=== PATIENT | female | born 1955 | race Caucasian/White ===

== ENCOUNTER 2021-03-04 00:45 | Day surgery (SDC) | payer OTHER, SELFPAY ==
[2021-02-11 14:19] VITALS: BMI 26.6
[2021-03-04 06:26] VITALS: BP 134/91; PULSE 99; RESP 16; TEMP 36.7; O2SAT 99; BMI 26.7
[2021-03-04] MEDS: LACTATED RINGERS 1,000 ML 150 ML IV CONT (06:39)
--- NOTE | 2021-03-04 07:16 | P.PNAN_ITS ---
Anes - Initial Pre Proc Eval Procedure: Operation Date: 03/04/21 07:30 Proposed Procedures p Screening Colonoscopy - Nikita Diana MD Date/Time: 03/04/21 07:16 Surgeon: Nikita Diana MD Pre Op Diagnosis: neoplasm screening Patient Data Age: 65 Gender: F Height: 1.68 m Weight: 75.2 kg Last Vital Signs Temp 98.1 F 03/04/21 06:26 Pulse 99 03/04/21 06:26 Resp 16 03/04/21 06:26 BP 134/91 H 03/04/21 06:26 Pulse Ox 99 03/04/21 06:26 Allergies Allergy/AdvReac Type Severity Reaction Status Date / Time butorphanol Allergy Unknown Hallucinati Verified 03/04/21 06:25 ons BUTORPHANOL TARTRATE Allergy Unknown Unknown Uncoded 03/04/21 06:25 tape Allergy Unknown Unknown Uncoded 03/04/21 06:25 Home Medications Medication Instructions Recorded Confirmed Type sodium,potassium,mag sulfates 17.5 See Rx Instructions PO .COMPLEX 01/26/21 Rx gram-3.13 gram-1.6 gram oral soln #354 ml cetirizine [Zyrtec] 10 mg PO DAILY PRN 02/11/21 03/04/21 History fluticasone propion-salmeterol 1 inh INHALATION BID PRN 02/11/21 03/04/21 History [Advair Diskus] levalbuterol tartrate [Xopenex HFA] 1 puff INHALATION Q6H PRN 02/11/21 03/04/21 History meloxicam 15 mg PO DAILY PRN 02/11/21 03/04/21 History Patient hx anesthesia problems: none Family hx anesthesia problems: none PMFSH Past Medical History Medical History (Updated 03/04/21 @ 07:16 by Nishant Masters MD) Mild persistent asthma with exacerbation Nonrheumatic mitral (valve) insufficiency Family History Family History Father Cerebrovascular accident, Onset Age: 77 Family history of Parkinson's disease, Onset Age: 77 Mother Carcinoma of colon Other Diabetes mellitus Family history of cardiovascular disease Family history of elevated blood lipids Family history of malignant neoplasm of bone Hypertension Malignant neoplasm of prostate Social History Social History (Reviewed 06/16/20 @ 15:43 by Charity Dash [facility]) Smoking status: Never smoker Alcohol intake: never Living arrangements: with family Spiritual care concerns: No Anes - Eval Final PreProcedure Day of Procedure 03/04/21 07:16 Patient weight: overweight Heart: regular rate and rhythm Lungs: clear to auscultation Airway: Mallampati scale class II Neurological: alert and oriented Last oral intake: >/= 8 hours ASA classification: II Emergent: no Anesthetic plan: proceed Anesthesia type and monitoring: general GIVS and standard monitoring Informed Consent: The patient's anesthetic plan and its attendant risks and benefits were discussed with the patient/family/POA. Questions were solicited and answers provided to the satisfaction of the patient/family/POA.
--- NOTE | 2021-03-04 07:20 | P.CONGI_ITS ---
Assessment and Plan Assessment and plan (1) Family history of colon cancer in mother: Code(s): Z80.0 - Family history of malignant neoplasm of digestive organs Status: Acute Assessment and Plan: Patient's mother has had colon cancer. Screening colonoscopy is to be performed today. Suggest follow-up colonoscopy at 5 year intervals given the family history. GI Consult Note Consult date/time: 03/04/21 07:20 HPI: Elaine Mackay is a 65 year old female Presents for screening col onoscopy. Patient states that her current weight appetite bowel movements are normal. She denies abdominal pain. She has had no bleeding. She reports that her mother has had colon cancer. Patient's last colonoscopy appears to have been in 2009. She reports occasionally will have diarrhea after eating out at restaurants. Review of Systems Review of Systems: All systems reviewed & are unremarkable except as noted in HPI and below PMFSH Past Medical History Medical History (Updated 03/04/21 @ 07:22 by Nikita Diana MD) Mild persistent asthma with exacerbation Nonrheumatic mitral (valve) insufficiency Family History Family History Father Cerebrovascular accident, Onset Age: 77 Family history of Parkinson's disease, Onset Age: 77 Mother Carcinoma of colon Other Diabetes mellitus Family history of cardiovascular disease Family history of elevated blood lipids Family history of malignant neoplasm of bone Hypertension Malignant neoplasm of prostate Social History Social History Smoking status: Never smoker Alcohol intake: never Living arrangements: with family Spiritual care concerns: No Meds Home Medications and Allergies Home Medications Medication Instructions Recorded Confirmed Type sodium,potassium,mag sulfates 17.5 See Rx Instructions PO .COMPLEX 01/26/21 Rx gram-3.13 gram-1.6 gram oral soln #354 ml cetirizine [Zyrtec] 10 mg PO DAILY PRN 02/11/21 03/04/21 History fluticasone propion-salmeterol 1 inh INHALATION BID PRN 02/11/21 03/04/21 History [Advair Diskus] levalbuterol tartrate [Xopenex HFA] 1 puff INHALATION Q6H PRN 02/11/21 03/04/21 History meloxicam 15 mg PO DAILY PRN 02/11/21 03/04/21 History Allergies Allergy/AdvReac Type Severity Reaction Status Date / Time butorphanol Allergy Unknown Hallucinati Verified 03/04/21 06:25 ons BUTORPHANOL TARTRATE Allergy Unknown Unknown Uncoded 03/04/21 06:25 tape Allergy Unknown Unknown Uncoded 03/04/21 06:25 Vital Signs Vital Signs - 24 hr 03/04/21 06:26 Temperature 98.1 F Pulse Rate 99 Respiratory Rate 16 Blood Pressure 134/91 H Pulse Oximetry 99 Exam Narrative: Exam Narrative: Physical exam reveals patient be alert. Vital signs stable. HEENT exam is unremarkable. Patient is anicteric. Lungs are clear to auscultation and percussion. Heart is without murmur or extra sounds. Abdominal exam bowel sounds are present soft nontender with no organomegaly. Digital external rectal exam is normal.
[2021-03-04 07:45] VITALS: BP 88/53; PULSE 61; RESP 18; O2SAT 94
[2021-03-04 07:55] VITALS: BP 124/58; PULSE 60; RESP 27; O2SAT 99
[2021-03-04 08:05] VITALS: BP 120/64; PULSE 62; RESP 27; O2SAT 98
== END 2021-03-04 08:28 | disposition home or self-care (01) ==
PROVIDERS: PCP Family Medicine; Visit Provider Internal Medicine Gastroenterology
PROC: 0DJD8ZZ Inspection of Lower Intestinal Tract, Via Natural or Artificial Opening Endoscopic (ICD-10-PCS; CPT 45378; principal; 2021-03-04 07:30)
DX: Z12.11 Encounter for screening for malignant neoplasm of colon (principal); D12.5 Benign neoplasm of sigmoid colon; K63.5 Polyp of colon; K64.8 Other hemorrhoids; Z80.0 Family history of malignant neoplasm of digestive organs; J45.30 Mild persistent asthma, uncomplicated; I34.0 Nonrheumatic mitral (valve) insufficiency; Z79.51 Long term (current) use of inhaled steroids
CPT/HCPCS: 45385; 88305; J2704; J7120

== ENCOUNTER → 2021-07-11 17:44 | Outpatient (CLI) | payer OTHER, SELFPAY ==
--- NOTE | ~2021-07-11 | XR_ITS ---
EXAMINATION: XR knee LT min 4V DATE: 07/11/2021 18:09 INDICATION: Unspecified left knee pain TECHNIQUE: Weight bearing anteroposterior and Lees, sunrise, and flexed lateral views of the lef t knee were obtained COMPARISON: None. FINDINGS: Alignment is normal. No fracture. Mild to moderate joint space narrowing in the medial compartment o f the left knee. Marginal osteophytes in all 3 compartments. No small left knee joint effusion. Soft tissues are unremarkable. IMPRESSION: 1. Mild to moderate medial compartment predominant tricompartmental osteoarthritis with small left kn ee joint effusion. Reviewed, dictated and finalized at location A. MATIC ENGRAVER IMPRESSION: 1. Mild to moderate medial compartment predominant tricompartmental osteoarthri tis with small left knee joint effusion.
== END ==
DX: M17.12 Unilateral primary osteoarthritis, left knee (principal); M25.462 Effusion, left knee
CPT/HCPCS: 73564

== ENCOUNTER → 2022-01-20 17:08 | Outpatient (CLI) | payer OTHER, SELFPAY ==
--- NOTE | ~2022-01-20 | MR_ITS ---
EXAMINATION: MR knee LT wo con DATE: 01/20/2022 17:42 INDICATION: Left knee pain TECHNIQUE: Magnetic resonance imaging (MRI) of the left knee was performed without intravenous contra st. Sequences included coronal PD-weighted FSE, coronal PD-weighted FS FSE, sagittal T2-weighted FSE , sagittal PD-weighted FS FSE and axial PD weighted fat saturated FSE. COMPARISON: None. FINDINGS: Medial compartment: Complex tear of the medial meniscus with 11 x 9 x 9 mm heterotopic ossicle replacing a significant po rtion of meniscal tissue at the site of a near full-thickness tear of the lateral aspect of the poste rior horn. There is a longitudinal horizontal tear plane extending medially into the posterior horn i nto the posterior body of the medial meniscus. Large likely parameniscal cyst which extends for appro ximately 6.5 cm in length along the periphery of the body and posterior horn of the medial meniscus w hich measures up to 3.7 cm craniocaudally and up to 9 mm in maximal width from the meniscus. Differen tial for the multiloculated fluid collection would include less likely pes anserinus bursitis. There is extensive deep chondral ulceration along portions of the anterior to central weightbearing medial femoral condyle and anterior two thirds of the medial tibial plateau. Is remodeling with slight depre ssion and irregular cortical contour to the medial margin of the medial tibial plateau with subarticu lar edema-like marrow signal change. Additional mild scattered subarticular marrow-like signal change along the anterior to central weightbearing medial femoral condyle. Less severe partial thickness ca rtilage loss along the posterior weightbearing medial femoral condyle and posterior aspect of the med ial tibial plateau. Small marginal osteophytes are present. Lateral compartment: There is some fraying along the inner free edge of the body and posterior horn of the lateral meniscu s. Deep chondral fissuring involving greater than 50% the cartilage thickness but without degenerativ e subchondral changes at the posterior aspect of the lateral tibial plateau. Mild partial-thickness c artilage loss along the peripheral margin of the anterior weightbearing lateral femoral condyle. Smal l marginal osteophytes are present. Patellofemoral compartment: Partial-thickness chondral ulceration with chondral surface irregularity centered along the patellar apical ridge with tiny focus of underlying subarticular edema-like signal change and extending into t he adjacent portions of the medial and lateral patellar facets. There is linear low signal intensity along the surface of the cartilage at the medial margin of the medial patellar facet which on prior r adiographs appears to correspond to chondrocalcinosis. There is some chondral swelling at the trochle ar groove. Small marginal osteophytes along the patella and trochlea. Ligaments and tendons: Anterior and posterior cruciate ligaments are normal. The medial collateral ligament and fibular bienvenido ateral ligament complex are normal. There appears be some laxity in the medial collateral ligament re sulting from the cartilage loss in the medial compartment and the fissure and very mild genu varus. P atellar tendon is normal. Mild tendinopathy with tiny enthesopathic ossicle at the lateral aspect of the distal quadriceps tendon. The visualized medial and lateral hamstring tendons as well as the ilio tibial band are normal. Fluid: Physiologic amount of fluid in the joint space. No loose osteochondral bodies identified. Osseous/other: Normal marrow signal aside from previously noted small amounts of chondromalacia associated subarticu lar edema-like signal change. No fracture or abnormal marrow replacing process. IMPRESSION: 1. 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
== END ==
PROVIDERS: PCP Family Medicine; Visit Provider Physician Assistant
DX: S83.232A Complex tear of medial meniscus, current injury, left knee, initial encounter (principal); M17.12 Unilateral primary osteoarthritis, left knee
CPT/HCPCS: 73721

== ENCOUNTER → 2022-12-06 15:52 | Outpatient (CLI) | payer OTHER, SELFPAY ==
--- NOTE | ~2022-12-06 | US_ITS ---
US thyroid INDICATION: Thyroid goiter TECHNIQUE: Real-time sonographic images of the thyroid gland were obtained. COMPARISON: No prior studies for comparison. FINDINGS: The right thyroid lobe measures 4.2 x 1.5 x 1.4 cm. The left thyroid lobe measures 4 x 0.9 x 1.2 cm there are small cysts in the right thyroid lobe measuring 2 mm or less. There is a 3 mm cys t in the left thyroid lobe. No suspicious masses in either lobe to suggest malignancy.. Normal vascul ar flow is present. IMPRESSION: 1. Benign bilateral thyroid cysts measuring 3 mm or less. Reviewed, dictated and finalized at location B.
== END ==
PROVIDERS: PCP Family Medicine; Visit Provider Family Medicine
DX: E04.1 Nontoxic single thyroid nodule (principal)
CPT/HCPCS: 76536

== ENCOUNTER 2024-03-26 12:38 | Outpatient (CLI) | payer MEDICARE, OTHER, SELFPAY ==
--- NOTE | 2024-03-26 12:42 | ECHO_ITS ---
Patient Info Name: Elaine Mackay Age: 68 years : 1955 Gender: Female Ht: 66 in Wt: 170 lbs BSA: 1.91 m2 HR: 75 bpm BP: 153 / 92 mmHg Heart Rhythm: Sinus Rhythm Technical Quality: Good Exam Date: 03/26/2024 1:06 PM Exam Location: Echo Lab Patient Status: Outpatient Admit Date: 03/26/2024 Staff Ordering Physician: Rocky Solano MD Cripple Worker: Jadon Wilder RDCS Attending Provider: Rocky Solano MD Referring Physician: Xiomara CAICEDO; Exam Type: CA echo doppler color flow Study Info Indications - nonrheumatic mitral valve prolapse Complete two-dimensional, color flow and Doppler transthoracic echocardiogram is performed. Summary 1. Complete two-dimensional, color flow and Doppler transthoracic echocardiogram is performed. 2. Left ventricular chamber dimension is normal. 3. Left ventricular systolic function is normal, estimated at 65-70%. 4. The left ventricular diastolic function is grade I diastolic dysfunction. 5. E/e' 9 is minimally elevated. 6. There is mild to moderate mitral valve regurgitation. 7. There is mild tricuspid valve regurgitation. 8. No pulmonary hypertension, estimated pulmonary arterial systolic pressure is 36 mmHg. Left Ventricle E/e' 9 is minimally elevated. Left ventricular chamber dimension is normal. Left ventricular systolic function is normal, estimated at 65-70%. The left ventricular diastolic function is grade I diastolic dysfunction. Right Ventricle Right ventricular systolic function is normal and with normal TAPSE 2.6 cm. Right ventricular chamber dimension is normal. Left Atria Left atrial chamber dimension is normal. Right Atria Right atrial chamber dimension is normal. Aortic Valve The aortic valve is trileaflet. There is no aortic valve stenosis. There is no aortic valve regurgitation. Pulmonic Valve There is no pulmonic regurgitation. Mitral Valve No mitral valve prolapse. There is no mitral valve stenosis. There is mild to moderate mitral valve regurgitation. Tricuspid Valve There is mild tricuspid valve regurgitation. No pulmonary hypertension, estimated pulmonary arterial systolic pressure is 36 mmHg. Pericardium/Pleural There is no pericardial effusion. Inferior Vena Cava Normal inferior vena cava with >50% collapse upon inspiration consistent with normal right atrial pressure, 5 mmHg. Aorta The aortic root size at the sinus of Valsalva is normal. Left Ventricular Outflow Tract Name Value Normal LVOT 2D LVOT Diameter 1.8 cm LVOT Doppler LVOT Peak Gradient 4 mmHg LVOT Mean Gradient 2 mmHg LVOT VTI 25 cm LVOT VTI/AV VTI Ratio 0.9 LVOT Stroke Volume 63 ml LVOT CO 4.0 l/min LVOT CI 2.1 l/min/m2 Pulmonic Valve Name Value Normal PV Doppler PV Peak Gradie
== END 2024-03-26 12:39 | disposition home or self-care (01) ==
LOC: ANHCARD 12:40
PROVIDERS: PCP Emergency Medicine; Visit Provider Emergency Medicine
DX: I34.1 Nonrheumatic mitral (valve) prolapse (principal); I34.0 Nonrheumatic mitral (valve) insufficiency; I36.1 Nonrheumatic tricuspid (valve) insufficiency; I51.89 Other ill-defined heart diseases
CPT/HCPCS: 93306

== ENCOUNTER 2024-07-11 15:04 | Outpatient (CLI) | payer MEDICARE, OTHER, SELFPAY ==
[2024-07-14 08:26] LABS: Kit Draw Collected
== END 2024-07-11 15:05 | disposition home or self-care (01) ==
LOC: ANHGOSHLAB 15:08
PROVIDERS: PCP Emergency Medicine; Visit Provider Nurse Practitioner Family
DX: M35.3 Polymyalgia rheumatica (principal); U07.1 COVID-19; M47.817 Spondylosis without myelopathy or radiculopathy, lumbosacral region
CPT/HCPCS: 36415

== ENCOUNTER 2024-07-17 10:54 | Outpatient (CLI) | payer MEDICARE, OTHER, SELFPAY ==
--- NOTE | ~2024-07-17 | US_ITS ---
EXAMINATION: US thyroid DATE: 07/17/2024 11:15 INDICATION: Nontoxic goiter, unspecified. TECHNIQUE: Multiple ultrasound images of the thyroid were obtained. COMPARISON: Thyroid ultrasound 11/29/2022 FINDINGS: The right thyroid lobe measures 4.1 x 1.0 x 1.3 cm. The left thyroid lobe measures 4.8 x 1.2 x 1.4 c m. In the left thyroid lobe, there is a 4 mm nodule. In the right thyroid lobe, there is a 2 mm nodu le. IMPRESSION: 1. Small thyroid nodules, likely not clinically significant. No follow-up is needed. Reviewed, dictated and finalized at location A. STRANDER IMPRESSION: 1. Small thyroid nodules, likely not clinically significant. No follow-up is ne eded.
== END 2024-07-17 10:55 | disposition home or self-care (01) ==
LOC: MICIMG 10:55
PROVIDERS: PCP Nurse Practitioner Family; Visit Provider Nurse Practitioner Family
DX: E04.2 Nontoxic multinodular goiter (principal)
CPT/HCPCS: 76536

== ENCOUNTER 2025-01-09 11:31 | Outpatient (CLI) | payer MEDICARE, OTHER, SELFPAY ==
--- NOTE | ~2025-01-09 | DEXA_ITS ---
Bone Density Report Name: LAQUITA BARRAZA Age: 69 Sex: Female Ethnicity: White Date of : 1955 Indication: osteopenia; height loss; history of glucocorticoids; asthma or emphysema; Referring Provider: Rocio, Flores Gale Study: Bone densitometry was performed. Exam Date: January 09, 2025 Accession number: [id number] Bone Density: Region BMD T-score Z-score Classification AP Spine(L1-L4) 0.895 -1.4 0.5 Osteopenia Femoral Neck (Left) 0.748 -0.9 0.7 Normal Total Hip (Left) 0.866 -0.6 0.7 Normal Femoral Neck (Right) 0.755 -0.8 0.8 Normal Total Hip (Right) 0.880 -0.5 0.8 Normal Total Hip Mean 0.873 -0.6 0.8 Normal World Health Organization criteria for BMD impression classify patients as: Normal (T-score at or above -1.0), Osteopenia (T-score between -1.0 and -2.5), or Osteoporosis (T-score at or below -2.5). 10-year Fracture Risk(1): Major Osteoporotic Fracture 13% Hip Fracture 1.1% Reported Risk Factors: [place] (), Neck BMD=0.748, BMI=29.2, glucocorticoids (1) FRAX(R) Version 3.08. Fracture probability calculated for an untreated patient. Fracture probability may be lower if the patient has received treatment. Previous Exams: -- Region Exam Age BMD T-score BMD Change BMD Change Date g/cm2 vs Baseline vs Previous -- AP Spine (L1-L4) 01/09/2025 69 0.895 -1.4 -3.8%# -3.8%# 05/03/2013 57 0.931 -1.1 Total Hip(Left) 01/09/2025 69 0.866 -0.6 -5.7%# -5.7%# 05/03/2013 57 0.918 -0.2 Total Hip(Right) 01/09/2025 69 0.880 -0.5 -7.8%# -7.8%# 05/03/2013 57 0.954 0.1 -- *Denotes significance at 95% confidence level, LSC for AP Spine = 0.022 g/cm2, LSC for Total Hip = 0.027 g/cm2 # Denotes dissimilar scan types or analysis methods Clinical Information Provided by Patient: Has taken Glucocorticoids Has used the following medications: Vitamin D, Calcium Has the following medical conditions: Asthma or Emphysema Patient maximum height was 65.5 Menopause Age: 53 No regular weight bearing exercise Drinks caffeinated beverages Onset of menses at age 15 Number of children 7 Impression: The patient has low bone mass, based on the Total Spine T-score. The patient has an estimated ten-year risk of hip fracture of 1.1% and an estimated ten-year risk of major fracture of 13%, based on the WHO FRAX algorithm. The patient has risk factors, including: history of glucocorticoid therapy. Unable to evaluate interval change due to the use of different scan modes. Discussion: BONE DENSITY IS LOW AT ONE OR MORE SKELETAL SITES. This patient's lowest T-score is low at one or more skeletal sites. It meets the World Health Organization's (WHO) criteria for “low bone mass” (T-score between -1.0 and -2.5). The patient's 10-year risk of fracture as calculated by FRAX is less than the threshold where pharmacological therapy is recommended by the National Osteoporosis Foundation (NOF). However, all treatment decisions require clinical judgment and consideration of individual patient factors, including patient preferences, comorbidities, previous drug use, risk factors not captured in the FRAX model (e.g., frailty, falls, vitamin D deficiency, increased bone turnover, interval significant decline in bone density) and possible under or overestimation of fracture risk by FRAX. The patient should follow a healthful lifestyle (good nutrition with adequate calcium and vitamin D, and appropriate weight-bearing exercise). Follow-Up: Consider repeating this study in 2 to 3 years to reassess this patient's status, or sooner if there is some new clinical indication. Reported by: JOEL on 01/14/2025 8:35:00 AM. Reviewed, dictated and finalized at location A.
== END 2025-01-09 11:32 | disposition home or self-care (01) ==
LOC: MICIMG 11:35
PROVIDERS: PCP Obstetrics & Gynecology; Visit Provider Obstetrics & Gynecology
DX: N95.9 Unspecified menopausal and perimenopausal disorder (principal)
CPT/HCPCS: 77080